=== PATIENT | male | born 1970 | race Caucasian/White ===

== ENCOUNTER 2023-12-02 11:19 | Emergency (ER) | payer OTHER, SELFPAY ==
[2023-12-02 11:22] VITALS: BP 141/89
[2023-12-02] MEDS: ADACEL 0.5 ML IM (12:11)
[2023-12-02] MEDS: MOTRIN 600 MG PO (12:12)
--- NOTE | 2023-12-02 12:27 | ED.MUSCINJ ---
HPI-Injury
General
Chief Complaint: Soft Tissue Injury
Source: patient
Exam Limitations: none
Time Seen by Provider: 12/02/23 11:36
Nursing documentation reviewed up to this point in time: agreed with
History of Present Illness-Injury
Initial Injury comments:
53 y/o M with no sig pmh
here with R hand dominance here with L index ifnger laceration with a router approx 1 hour ago
unknown last tetanus,
Laceration on the dorsal aspect of the distal fingertip with nail involvement. Patient is full strength and range of motion, sensations intact. Bleeding is controlled
Review of Systems
Review of Systems
Allergies reviewed?: Yes
All Other Systems: Not applicable
Phy Exam
Physical Exam
Physical Exam:
GENERAL: Alert , in no apparent distress, comfortable at rest
HEAD: NCAT
CV: Cap refill intact
NEUROLOGICAL: Alert and oriented, no focal neuro deficits, , 5/5 strength, sensation intact, ambulation slight limp right leg
SKIN: Warm and dry, linear laceration on the radial aspect of the left distal second digit involving a very poor small portion of the nail plate on the lateral nail fold
Proximal nail folds intact
MUSCULOSKELETAL: Fingertip laceration, dorsal aspect only, full range of motion of the DIP, no fat pad involvement
PSYCH: Normal and appropriate interaction.
Injury Course
Orders/Labs/Results
Orders:
Orders
12/02/23 11:55
Ibuprofen [Motrin] 600 mg PO NOW STA
Tetanus/Diphth/Acelpertussis [Adacel] 0.5 ml IM .ONCE ONE
Finger(s)/Thumb 2 View Lt [CR Finger(s)/thumb Min 2 Vw Lt] Urgent
Comment:
Reason For Exam: left distal fingertip laceration
12/02/23 13:11
Cephalexin Monohydrate [Keflex] 500 mg PO NOW STA
Procedures
Laceration Closure
Left Second Finger(s):
Status of Wound: clean
Size of Wound in cm: 2
Description of Wound Edges: macerated
Preparation: cleaned with saline
Anesthesia: 1% Lidocaine and Digital-Regional
Revision/Debridement: minor revision and irrigate-direct pressure
Wound exploration: explored to base- no FB
Type of Closure: single layer closure
Skin Closure Material: 5-0 nylon
Number of sutures: 4
MDM/Problems Addressed
Differential Diagnosis Includes:
laceration, nail bed fracture, open fracutre
MDM/Problems Addressed:
53 y/o M with right hand dominance
L index finger tip injury today at home
injury to the nail plate
on exa bleeding controlled
2 cm linear laceration with some maceration of the distal fingertip, small portion of the nail plate avulsed
digital block
irrigated
and sutured through the nail plate to help approximate the wound
appreciate radiology report, xray indep reviewed, small tuft fx
also a small fb in the soft tissue that pt remembers getting a while ago
will need hand f/u
keflex
tetanus.
*Critical Care Note
Total Time (30-74mins, 75-104mins- exclusive of procedures): Not Applicable
ED Attending Note
-
Portions of this chart may have been created with voice recognition software.� Occasional wrong word or��sound alike� substitutions may have occurred due to the inherent limitations of voice recognition software.
Discharge Plan
Departure
Patient Disposition: Home (Routine Discharge)
Date of Disposition: 12/02/23
Time of Disposition: 13:14
Patient with high blood pressure during this ER visit?: Yes
Condition: Fair
Covid-19: Not Applicable
Discharge Problem:
Laceration of finger, Finger fracture, left
Instructions: Wound Care (DC), Laceration Repair With Stitches (DC)
Prescriptions:
New
cephalexin 500 mg capsule
500 mg PO Q8H 7 Days Qty: 21 0RF
Referrals:
Real Diamond MD [Active] - Follow up in 2-3 days (HAND DOCTOR)
Activity Restrictions/Additional Instructions:
KEEP THE WOUND CLEAN AND DRY FOR 24 HOURS
AFTER THAT YOU CAN GET IT WET IN THE BATH/SHOWER ONCE A DAY AND MAKE SURE IT IS CLEAN AND THERE IS NO DRIED BLOOD ON THE STITCHES
APPLY NEOSPORIN AND A BANDAID
THE STITCHES NEED TO BE REMOVED IN ABOUT 7-10 DAYS, SEE YOUR DOCTOR FOR THIS.
You should follow-up with a hand doctor for further nail bed treatment
THE LAST DAY BEFORE STITCHES OUT, NO OINTMENT, LEAVE OPEN TO AIR
WATCH FOR SIGNS OF INFECTION AND RETURN NEEDED FOR PAIN, SWELLING, REDNESS, DRAINAGE, BLEEDING.
MOTRIN NEEDED FOR PAIN.
TAKE KEFLEX 3 TIMES ADAY TO PREVENT INFECTION FOR 7D AYS
YOU HAVE A SMALL FRACTURE OF YOUR BONE
THIS SHOULD HEAL
WEAR THE SPLINT STARTING TOMORROW TO PROTECT IT UNTIL YOU SEE ORTHOPEDICS
Interventions
Interventions:
*Risk Screen - Suicide Last Done: 12/02/23 11:22
*General Assessment Last Done: 12/02/23 11:22
*Neglect/Abuse Screening Last Done: 12/02/23 11:22
ED- Fall Risk Assessment Last Done: 12/02/23 13:34
*ED COVID-19 Vaccine History Last Done: 12/02/23 13:34
*Nursing Disposition Last Done: 12/02/23 13:34
ED-Musculoskeletal Assessment Last Done: 12/02/23 13:33
ED-Skin Assessment Last Done: 12/02/23 13:33
Discharge Date and Time
Discharge Date/Time: 12/02/23 13:36
Print Language: [id number]
[2023-12-02] MEDS: KEFLEX 500 MG PO (13:20)
== END 2023-12-02 13:36 | disposition home or self-care (01) ==
LOC: EMR 11:19
PROVIDERS: EMERGENCY PHYSICIAN Student in an Organized Health Care Education/Training Program; FAMILY PHYSICIAN Family Medicine
DX: S62.601A Fracture of unspecified phalanx of left index finger, initial encounter for closed fracture (principal); S61.311A Laceration without foreign body of left index finger with damage to nail, initial encounter; W31.89XA Contact with other specified machinery, initial encounter; Z23 Encounter for immunization
CPT/HCPCS: 99283; 12001; 90471; 73140; 90715